=== PATIENT | female | born 1995 | race Caucasian/White ===

== ENCOUNTER 2017-04-06 12:33 | Emergency (ER) | payer SELFPAY ==
[~2017-04-06] VITALS: Wt 58.2 kg
[2017-04-06] MEDS ORDERED: ONDANSETRON (ODT) 4 MG TAB ODT STA (13:22)
[2017-04-06] MEDS ORDERED: IBUPROFEN 200 MG TAB PO ONE (13:30)
[2017-04-06] MEDS ORDERED: IBUP400T22 PO (14:12)
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
== END 2017-04-06 14:35 | disposition home or self-care (01) ==
LOC: FTE 12:33
DX: R51 Headache (principal); M54.2 Cervicalgia
CPT/HCPCS: 99283

== ENCOUNTER 2018-02-14 17:42 | Emergency (ER) | END 2018-02-14 19:00 | disposition left against medical advice (07) ==

== ENCOUNTER 2018-02-15 15:35 | Emergency (ER) | END 2018-02-15 18:49 | disposition home or self-care (01) ==

== ENCOUNTER 2018-06-14 09:49 | Emergency (ER) | payer SELFPAY ==
[~2018-06-14] VITALS: Ht 152.4 cm; Wt 59.0 kg
[~2018-06-14 09:49] MED LIST: ALBU8.5H8 INH; IBUP-1561 PO; PRED20TA PO
[2018-06-14 09:54] VITALS: Ht 152.4 cm; Wt 59.0 kg
--- NOTE | 2018-06-14 18:17 | ERD ---
ER Documentation Chief Complaint Chief Complaint C/O RUQ SINCE MONDAY HPI 22-year-old female patient with no sniffing past medical history presents to ED complaining of right lower quadrant abdominal pain. Patient denies any fever, chills, nausea, vomiting, diarrhea, neck stiffness. Denies any dysuria, urgency, frequency, hematuria. ROS All systems reviewed and are negative except as per history of present illness. Medications Home Meds Active Scripts Albuterol Sulfate* (Proair HFA*) 8.5 Gm Hfa.aer.ad, 2 PUFF INH Q4, #1 INHALER Prov:TASIA VITAL PA-C 02/15/18 Prednisone* (Prednisone*) 20 Mg Tab, 40 MG PO DAILY for 4 Days, TAB Prov:TASIA VITAL PA-C 02/15/18 Ibuprofen* (Motrin*) 400 Mg Tab, 400 MG PO Q6, #20 TAB Prov:COLLIN ROLDAN PA-C 04/06/17 Allergies Allergies: Coded Allergies: No Known Drug Allergies (Verified Allergy, Unknown, 04/06/17) PMhx/Soc History of Surgery: No Hx Respiratory Disorders: Yes (asthma) Hx Miscellaneous Medical Probl: No Hx Alcohol Use: Yes Hx Substance Use: No Hx Tobacco Use: No FmHx Family History: No diabetes, No coronary disease Physical Exam Vitals Vital Signs Date Temp Pulse Resp B/P (MAP) Pulse Ox O2 O2 Flow FiO2 Time Delivery Rate 06/14/18 98.3 80 18 125/59 96 09:54 (81) Physical Exam Const: Gga-iio-xwnjmmioa, well-nourished. In no acute distress. Head: Atraumatic, normocephalic Eyes: Normal Conjunctiva without injection. No purulent discharge. ENT: Normal external ear, nose. Moist oropharynx without tonsillar exudates. Non-erythematous pharynx. Uvula midline. No drooling. No trismus. Neck: No cervical midline tenderness. Full range of motion. No meningismus. No cervical lymphadenopathy. No JVD. Resp: Clear to auscultation bilaterally. No wheezing, rhonchi, rales, or crackles. No accessory muscle use. No retractions. Cardio: Regular rate and rhythm. No murmurs, rubs or gallops. Abd: Soft, nontender, non distended. Normal bowel sounds. No palpable masses. No rebound tenderness. No guarding. Negative McBurney's point. Negative psoas sign. Negative obturator sign. Skin: No petechiae or rashes Back: No midline tenderness. No CVA tenderness. Ext: No cyanosis, or edema. Neur: Awake and alert. Normal gait. Normal coordination. Psych: Normal Mood and Affect Result Diagram: 06/14/18 1050 06/14/18 1050 Results 24 hrs Laboratory Tests Test 06/14/18 10:47 06/14/18 10:50 06/14/18 10:53 Urine Color YELLOW Urine Clarity CLEAR Urine pH 6.0 Urine Specific [place] 1.016 Urine Ketones NEGATIVE mg/dL Urine Nitrite NEGATIVE mg/dL Urine Bilirubin NEGATIVE mg/dL Urine Urobilinogen NEGATIVE mg/dL Urine Leukocyte Esterase NEGATIVE Hina/ul Urine Hemoglobin NEGATIVE mg/dL Urine Glucose NEGATIVE mg/dL Urine Total Protein NEGATIVE mg/dl White Blood Count 7.3 10^3/ul Red Blood Count 4.66 10^6/ul Hemoglobin 13.6 g/dl Hematocrit 40.6 % Mean Corpuscular Volume 87.1 fl Mean Corpuscular Hemoglobin 29.2 pg Mean Corpuscular 33.5 g/dl Hemoglobin Concent Red Cell Distribution Width 12.0 % Platelet Count 245 10^3/UL Mean Platelet Volume 12.0 fl Immature Granulocytes % 0.300 % Neutrophils % 71.0 % Lymphocytes % 21.2 % Monocytes % 5.9 % Eosinophils % 1.0 % Basophils % 0.6 % Nucleated Red Blood Cells % 0.0 /100WBC Immature Granulocytes # 0.020 10^3/ul Neutrophils # 5.2 10^3/ul Lymphocytes # 1.5 10^3/ul Monocytes # 0.4 10^3/ul Eosinophils # 0.1 10^3/ul Basophils # 0.0 10^3/ul Nucleated Red Blood Cells # 0.0 10^3/ul Sodium Level 142 mmol/L Potassium Level 4.5 mmol/L Chloride Level 102 mmol/L Carbon Dioxide Level 29 mmol/L Anion Gap 11 Blood Urea Nitrogen 11 mg/dl Creatinine 0.59 mg/dl Est Glomerular Filtrat > 60 mL/min Rate mL/min Glucose Level 91 mg/dl Calcium Level 9.4 mg/dl Total Bilirubin 0.7 mg/dl Direct Bilirubin 0.00 mg/dl Indirect Bilirubin 0.7 mg/dl Aspartate Amino 28 IU/L Transf (AST/SGOT) Alanine 17 IU/L Aminotransferase (ALT/SGPT) Alkaline Phosphatase 81 IU/L Total Protein 7.8 g/dl Albumin 4.7 g/dl Globulin 3.10 g/dl Albumin/Globulin Ratio 1.51 Lipase 42 U/L POC Beta HCG, Qualitative NEGATIVE Procedures/MDM 22-year-old male patient with no significant past medical history presents to the ED complaining of right lower quadrant abdominal pain. Patient is afebrile and nontoxic-appearing. Patient was further worked up with CBC, CMP, lipase, UA, pelvic ultrasound. She denied wanting any pain medications here in the ED. CBC: No leukocytosis. No e/o of systemic infection. No e/o anemia. CMP: No e/o severe acidosis, alkalosis, renal failure, diabetic ketoacidosis, li little disease Lipase within normal limits. Urine: No leukocyte esterase, no nitrites, no hematuria. Urine : Negative IMPRESSION: Unremarkable pelvic ultrasound. Patient does not have any current abdominal pain. Patient was instructed that if she still had any right lower quadrant abdominal pain, she should return to the ED for possible CT of the abdomen and pelvis without contrast. Suspicion for appendicitis at this time. No leukocytosis noted. Denies any vomiting, diarrhea, fever. Low suspicion for ectopic , ovarian torsion, gastritis, GERD, peptic ulcer disease, cholecystitis, choledocholithiasis, cholangitis, pancreatitis, appendicitis, bowel obstruction, ileus, volvulus, nephrolithiasis, pyelonephritis, hepatitis, perforated viscus, diverticulitis, strangulated/incarcerated hernia, DKA, acute abdomen, mesenteric ischemia or other emergent conditions. Diagnosis: Abdominal pain Follow up with primary care physician here in the ED for a 8-12-hour reexaminati on of the abdomen. Instructed patient to return to the ED sooner for any worsening symptoms. Patient's questions were answered. Patient understood and agreed with discharge plan. Patient discharged stable. Departure Diagnosis: Primary Impression: Abdominal pain Abdominal location: unspecified location Qualified Codes: R10.9 - Unspecified abdominal pain Condition: Stable Patient Instructions: Abdominal Pain, Pelvic Pain, Unknown Cause Referrals: COMMUNITY CLINICS YOU HAVE RECEIVED A MEDICAL SCREENING EXAM AND THE RESULTS INDICATE THAT YOU DO NOT HAVE A CONDITION THAT REQUIRES URGENT TREATMENT IN THE EMERGENCY DEPARTMENT. FURTHER EVALUATION AND TREATMENT OF YOUR CONDITION CAN WAIT UNTIL YOU ARE SEEN IN YOUR DOCTORS OFFICE WITHIN THE NEXT 1-2 DAYS. IT IS YOUR RESPONSIBILITY TO MAKE AN APPOINTMENT FOR FOLOW-UP CARE. IF YOU HAVE A PRIMARY DOCTOR --you should call your primary doctor and schedule an appointment IF YOU DO NOT HAVE A PRIMARY DOCTOR YOU CAN CALL OUR PHYSICIAN REFERRAL HOTLINE AT IF YOU CAN NOT AFFORD TO SEE A PHYSICIAN YOU CAN CHOSE FROM THE FOLLOWING [facility] [address] [facility] [address] [facility] [address] [facility] [address] [facility] [address] [facility]. [facility] [address] [facility]. [facility] YOU HAVE RECEIVED A MEDICAL SCREENING EXAM AND THE RESULTS INDICATE THAT YOU DO NOT HAVE A CONDITION THAT REQUIRES URGENT TREATMENT IN THE EMERGENCY DEPARTMENT. FURTHER EVALUATION AND TREATMENT OF YOUR CONDITION CAN WAIT UNTIL YOU ARE SEEN IN YOUR DOCTORS OFFICE WITHIN THE NEXT 1-2 DAYS. IT IS YOUR RESPONSIBILITY TO MAKE AN APPOINTMENT FOR FOLOW-UP CARE. IF YOU HAVE A PRIMARY DOCTOR --you should call your primary doctor and schedule and appointment IF YOU DO NOT HAVE A PRIMARY DOCTOR YOU CAN CALL OUR PHYSICIAN REFERRAL HOTLINE AT . IF YOU CAN NOT AFFORD TO SEE A PHYSICIAN YOU CAN CHOSE FROM THE FOLLOWING [facility]: [facility] [address] [place] [address] [facility] [address] [place] [address] [facility] + [facility] [address] [place] [address] [facility] C[facility]SPECIALTIES Additional Instructions: Return to the ED in 8-12 hours for a reexamination of the abdomen. See the docto r sooner or return here if your condition worsens before your appointment time. COLLIN ROLDAN PA-C Jun 14, 2018 18:17
== END 2018-06-14 12:37 | disposition home or self-care (01) ==
LOC: FTE 09:49
DX: R10.31 Right lower quadrant pain (principal); J45.909 Unspecified asthma, uncomplicated; R10.2 Pelvic and perineal pain
CPT/HCPCS: 36415; 76856; 80053; 81003; 81025; 83690; 85025

== ENCOUNTER 2018-07-23 18:30 | Emergency (ER) | payer SELFPAY ==
[~2018-07-23] VITALS: Ht 152.4 cm; Wt 60.3 kg
[2018-07-23 18:43] VITALS: BP 141/60; PULSE 75; RESP 22; Ht 152.4 cm; Wt 60.3 kg
== END 2018-07-23 21:53 | disposition left against medical advice (07) ==
LOC: FTE 18:30
DX: Z53.21 Procedure and treatment not carried out due to patient leaving prior to being seen by health care provider (principal)

== ENCOUNTER 2018-07-25 18:14 | Emergency (ER) | payer MEDICAID ==
[~2018-07-25] VITALS: Ht 152.4 cm; Wt 60.2 kg
[2018-07-25 18:19] VITALS: Ht 152.4 cm; Wt 60.2 kg
[2018-07-25] MEDS ORDERED: ALBUTEROL 0.083% (NEB) 2.5 MG/3 ML AMP HHN STA (23:46)
--- NOTE | 2018-07-25 23:49 | ERD ---
ER Documentation Chief Complaint Chief Complaint cough, feverish, st x 2 days HPI This is a 23-year-old female who presents here in the emergency department with complaints of cough, sore throat, fever for about 2 days. Stated that she is asthmatic. Stated that she ran out of inhaler. LMP: 07/23/2018. . Denies headache, head injury, loss of consciousness, dizziness, neck pain, neck stiffness, throat pain, difficulty swallowing, difficulty breathing lying flat, shoulder pain, chest pain, back pain, abdominal pain, nausea, vomiting, constipation, diarrhea, urinary symptoms, or possibility being , loss of bowel and bladder control, trauma, injury, falls, difficulty w alking due to pain, numbness or tingling sensation, calf pain, recent travel, recent major surgery in the last 3 weeks, calf pain, recent long travel, recent exposure to any illness, recent antibiotic use in the last 3 months, chills, seizures. Past medical history: Asthma. Surgical history: Social: Denies smoking, use of alcoholic beverages, use of illegal drugs. ROS All systems reviewed and are negative except as per history of present illness. Medications Home Meds Active Scripts Azithromycin* (Zithromax*) 250 Mg Tablet, 250 MG PO .ZPACK DIRECTED, #6 TAB TAKE 500 MG (2 TABS) THE FIRST DAY THEN 250 MG (1 TAB) DAYS 2-5 Prov:MATEO GARCIA 07/25/18 Benzonatate* (Tessalon Perle*) 100 Mg Capsule, 100 MG PO Q8H PRN for COUGH, #15 CAP Prov:MATEO GARCIA 07/25/18 Ondansetron Hcl* (Zofran*) 4 Mg Tablet, 4 MG PO Q6H PRN for NAUSEA, #15 TAB Prov:MATEO GARCIA 07/25/18 Acetaminophen* (Tylophen*) 500 Mg Capsule, 1 CAP PO Q6H PRN for PAIN AND OR ELEVATED TEMP, #20 CAP Prov:MATEO GARCIA 07/25/18 Prednisone* (Prednisone*) 20 Mg Tab, 40 MG PO DAILY for 2 Days, TAB Prov:PASMATEO AVILA 07/25/18 Albuterol Sulfate* (Proair HFA*) 8.5 Gm Hfa.aer.ad, 2 PUFF INH Q4 PRN for WHEEZING, #1 INHALER Prov:MATEO GARCIA 07/25/18 Albuterol Sulfate* (Proair HFA*) 8.5 Gm Hfa.aer.ad, 2 PUFF INH Q4, #1 INHALER Prov:TASIA VITAL PA-C 02/15/18 Prednisone* (Prednisone*) 20 Mg Tab, 40 MG PO DAILY for 4 Days, TAB Prov:TASIA VITAL PA-C 02/15/18 Ibuprofen* (Motrin*) 400 Mg Tab, 400 MG PO Q6, #20 TAB Prov:COLLIN ROLDAN PA-C 04/06/17 Allergies Allergies: Coded Allergies: No Known Drug Allergies (Verified Allergy, Unknown, 04/06/17) PMhx/Soc History of Surgery: No Hx Respiratory Disorders: Yes (asthma) Hx Miscellaneous Medical Probl: No Hx Alcohol Use: Yes Hx Substance Use: No Hx Tobacco Use: No Physical Exam Vitals Physical Exam Const: No acute distress Head: Atraumatic Eyes: Normal Conjunctiva ENT: Normal External Ears, Nose and Mouth. Bilateral ears: TMs are not erythematous. No bleeding. No discharge. No hearing loss. No mastoid tenderness. Throat: Uvula is midline and nondisplaced. Tonsils are +1 bilaterally without redness and without exudates. Tolerating secretions. Patent airway. Speaks full and clear sentences. No drooling. No tripoding. Neck: Full range of motion. No meningismus. No nuchal rigidity. No signs of meningeal irritation. Resp: Mild wheezing bilaterally. No accessory muscle use in breathing. Cardio: Regular rate and rhythm, no murmurs Abd: Soft, non tender, non distended. Normal bowel sounds. No abdominal tenderness. Skin: No petechiae or rashes. Color appears normal for ethnicity. No skin tenting. No signs of severe dehydration. Back: No midline or flank tenderness Ext: No cyanosis, or edema Neur: Awake and alert. No neurological deficits. Psych: Normal Mood and Affect Results 24 hrs Current Medications Medications Dose Sig/Rosalinda Start Time Status Last (Trade) Ordered Route PRN Stop Time Admin Dose Reason Admin 10 mg ONCE ONCE 07/26/18 DC 07/26/18 Dexamethasone PO 00:00 00:31 (Decadron) 07/26/18 00:01 Albuterol 5 mg ONCE STAT 07/25/18 DC 07/26/18 (Proventil HHN 23:46 00:01 0.083% (Neb)) 07/25/18 23:47 Ipratropium 0.5 mg ONCE ONCE 07/26/18 DC 07/26/18 [place] [facility] 00:00 00:01 (Atrovent 07/26/18 00:01 0.02% (Neb)) Procedures/MDM Diagnostic tests: Clinical exam. Treatment: Dexamethasone p.o. Albuterol Atrovent breathing treatment. Re-evaluation: No tripoding. No signs of airway obstruction. No drooling. Tolerating liquids by mouth. Respirations even and unlabored. No accessory muscle use in breathing. Lung sounds are clear to auscultation. Differential diagnosis I have low suspicion for sepsis, tonsillar abscess, mastoiditis, meningitis, bronchospasm, pneumonia, severe dehydration. Final diagnosis: Asthmatic bronchitis. Asthma exacerbation. Prescription: Azithromycin. Prednisone. Pro-air. Tylenol. Tessalon Perles. Zofran. Follow-up with PCP in the next 24-48 hours. Come back here in the emergency department for any new symptoms or any worsening symptoms. All questions and concerns were answered. Patient and family members verbalized understanding and agreed with plan of care. Hemodynamically stable on discharge. Departure Diagnosis: Primary Impression: Cough Additional Impressions: Asthmatic bronchitis Asthma exacerbation Tonsillitis Condition: Stable Additional Instructions: Follow-up with PCP in the next 24-48 hours. Come back here in the emergency department for any new symptoms or any worsening symptoms. MATEO GARCIA Jul 25, 2018 23:49
[2018-07-25] MEDS ORDERED: PRED20TA PO (23:50)
[2018-07-25] MEDS ORDERED: ALBU8.5H8 INH (23:50)
[2018-07-25] MEDS ORDERED: ACET500C5 PO (23:51)
[2018-07-25] MEDS ORDERED: ONDA4TAB8 PO (23:51)
[2018-07-25] MEDS ORDERED: BENZ-6 PO (23:51)
[2018-07-25] MEDS ORDERED: AZIT250T PO (23:52)
[2018-07-26] MEDS ORDERED: DEXAMETHASONE 10 MG/ML 1 ML INJ PO ONE
[2018-07-26] MEDS ORDERED: IPRATROPIUM (NEB) 0.5 MG/2.5 ML AMP HHN ONE
[2018-07-26 00:30] VITALS: BP 141/69; PULSE 75; RESP 18
== END 2018-07-26 00:45 | disposition home or self-care (01) ==
LOC: FTE 18:14
DX: J45.901 Unspecified asthma with (acute) exacerbation (principal); J03.90 Acute tonsillitis, unspecified
CPT/HCPCS: 94664; J1100; Z7610